=== PATIENT | male | born 1995 | race Caucasian/White ===

== ENCOUNTER 2019-02-13 11:51 | Emergency (ER) | payer OTHER | END 2019-02-13 12:15 | LOC: NAV ERS 11:51 | DX: T75.4XXA Electrocution, initial encounter (principal); I10 Essential (primary) hypertension; G40.909 Epilepsy, unspecified, not intractable, without status epilepticus; Z79.899 Other long term (current) drug therapy; W86.8XXA Exposure to other electric current, initial encounter | CPT/HCPCS: 93005 ==

== ENCOUNTER 2019-03-21 12:22 | Emergency (ER) | payer OTHER ==
[2019-03-21] MEDS ORDERED: Lorazepam 2 MG/ML VIAL ONE (12:55)
[2019-03-21] MEDS ORDERED: levETIRAcetam 500 MG/100 ML PREMIX BAG ONE (13:06)
== END 2019-03-21 14:39 | disposition home or self-care (01) ==
LOC: NAV ERS 12:22
DX: G40.909 Epilepsy, unspecified, not intractable, without status epilepticus (principal); R00.1 Bradycardia, unspecified; I10 Essential (primary) hypertension; Z79.899 Other long term (current) drug therapy
CPT/HCPCS: 96365; 96375; J1953; J2060